=== PATIENT | male | born 1935 | race Caucasian/White ===

== ENCOUNTER 2017-01-07 10:28 | Inpatient (IN) | payer MEDICARE, BC ==
--- NOTE | ~2017-01-07 | DS ---
Unit #: [id number] #: [id number] Patient: TOSHIA MANN [id number] [address] [place], [place] [address] [id number] Jorge MR#: [id number] NAME: TOSHIA MANN. ROOM: 203 Age: 81 Sex: M Admission Date: 01/07/2017 : 1935 Discharge Date: 01/11/2017 Attending Physician: Rupa Odonnell M.D. Primary Care Physician: Calli Villalta M.D. DISCHARGE SUMMARY PRINCIPAL DIAGNOSES 1. Recurrent gross hematuria, secondary to #2. 2. Urinary retention, pending voiding trial. 3. Mild acute blood loss anemia with discharge hemoglobin 9.9. 4. Chronic kidney disease stage 3 with discharge creatinine of 1.9. 5. Paroxysmal atrial fibrillation, now being maintained on aspirin therapy only. 6. Coronary artery disease. 7. Hypertension. 8. History of bladder cancer with most recent biopsy approximately one month ago, negative. 9. Peripheral arterial disease. 10. Obesity. 11. Gastroesophageal reflux disease. 12. Hypothyroidism. CONCIERGE RECEPTIONIST Dr. Reyez, Urology. PROCEDURE None. CLINICAL HISTORY AND HOSPITAL COURSE Mr. Mann is a 81-year-old male with a history of recurrent hematuria, who presents to the emergency department with gross hematuria. Please refer to H and P for further details. The patient was found to have a therapeutic INR of 2.2. The patient had three-way catheter placed and was started on bladder irrigation per urology. With bladder irrigation, the patient's hematuria resolved. However, when irrigation was stopped, the patient developed recurrent gross hematuria and irrigation had to be re-initiated. It is felt at this time that patient's recurrent hematuria is secondary to significant bladder extension due to urinary retention and this distention in combination with his anticoagulation is leading to his gross hematuria. I am still awaiting a voiding trial since three-way catheter has been removed but I anticipate if patient is unable to void, he will be discharged home with a catheter. This case has been discussed with Dr. Damian and he agrees to stop Coumadin at least for the next month and continue patient on aspirin only given his paroxysmal atrial fibrillation. I anticipate patient will be discharged home later today. I will note patient developed a mild anemia secondary to his hematuria but discharge hemoglobin is stable. DISCHARGE CONDITION Stable. Unit #: [id number] #: [id number] Patient: TOSHIA MANN DISCHARGE STATUS Discharge to home plus/minus indwelling Rojas catheter. DISCHARGE MEDICATIONS 1. Flomax 0.4 mg daily. 2. Amiodarone 100 mg daily. 3. Meclizine 12.5 mg b.i.d. p.r.n. for dizziness. 4. [place] 3 fish oil two capsules b.i.d. 5. Lopid 600 mg b.i.d. 6. Coreg 12.5 mg b.i.d. 7. Norvasc 10 mg at bedtime. 8. MiraLax 17 g p.o. b.i.d. p.r.n. for constipation. 9. Lipitor 20 mg at bedtime. 10. Hydralazine 100 mg p.o. t.i.d. 11. Singulair 10 mg daily. 12. Aspirin 81 mg p.o. daily. 13. Protonix 40 mg daily. 14. Synthroid 25 mcg p.o. daily. 15. Nitroglycerin 0.4 mg sublingual q.5 minutes p.r.n. for chest pain. 16. Folic acid 1 mg daily. 17. Vitamin C 500 mg daily. DISCHARGE INSTRUCTIONS 1. The patient was instructed to follow a heart healthy diet. 2. He can increase his activity as tolerated. 3. If he is sent home with a catheter, he will continue catheter care per urology. FOLLOWUP The patient will follow up with urology as scheduled and again, he will not take any Coumadin for one month and can follow up with Dr. Damian at that time and will be maintained on aspirin therapy only. Time spent on discharge, 33 minutes. Dictated by... Rupa Odonnell M.D. GIGI/aidan TD: 01/12/2017 12:41 JOB #: [id number] DISCHARGE SUMMARY X Rupa Odonnell MD DISCHARGE SUMMARY
--- NOTE | ~2017-01-07 | CO ---
Unit #: [id number] #: [id number] Patient: TOSHIA MANN [id number] [address] [address] [id number] I MR#: [id number] NAME: TOSHIA MANN. ROOM: 331 Age: 81 Sex: M Admission Date: 01/07/2017 : 1935 Attending Physician: Bronson Sharma M.D. Primary Care Physician: Calli Villalta M.D. Consultation Date: 01/08/2017 CONSULTATION REPORT REASON FOR CONSULTATION Gross hematuria. HISTORY OF PRESENT ILLNESS Mr. Mann is a pleasant 81-year-old man well known to our service for his history of bladder cancer managed by Dr. Reyez and previous Dr. Villalta. He most recently was found to have high grade TIA, urothelial carcinoma in 03/2016 and underwent treatment with ECG at that time. He was admitted to the hospital in December with gross hematuria requiring CBI and ultimately was discharged with Rojas catheter in place. Of note, he also has a history of urinary retention. The patient has multiple comorbidities including hypertension, coronary artery disease, atrial fibrillation, peripheral artery disease, and history of strokes. He chronically takes Coumadin. When he was seen in the hospital, he was admitted and placed continuous bladder irrigation. He reports that he passed a couple of clots at home before presenting to the hospital but has had none since. No abdominal discomfort at this time. No nausea, vomiting, fevers, chills. PAST MEDICAL HISTORY 1. Bladder cancer. 2. History of gross hematuria requiring CBI. 3. Hypertension. 4. History of cerebrovascular accident. 5. Hypothyroidism. 6. Paroxysmal atrial fibrillation. 7. Coronary artery disease. 8. Peripheral artery disease. 9. Abdominal aortic aneurysm. 10. History of anticoagulation with Coumadin due to atrial fibrillation. PAST SURGICAL HISTORY 1. Angioplasty. 2. Carotid endarterectomy. 3. Abdominal aortic aneurysm. 4. Pacemaker placement. 5. Cholecystectomy. 6. Right shoulder surgery. 7. TURBT. SOCIAL HISTORY The patient is a nonsmoker, quit in . Does not drink alcohol. FAMILY HISTORY Unit #: [id number] #: [id number] Patient: TOSHIA MANN Noncontributory. ALLERGIES None. MEDICATIONS (HOME MEDICATIONS) 1. Amiodarone. 2. Norvasc. 3. Aspirin. 4. Lipitor. 5. Carvedilol. 6. Gemfibrozil. 7. Hydralazine. 8. Levothyroxine. 9. Meclizine. 10. Nitrostat. 11. [place] 3. 12. Metoprolol. 13. MiraLAX. 14. Vitamin C. 15. Singulair. 16. Flomax. 17. Coumadin. 18. Folic acid. PHYSICAL EXAMINATION VITAL SIGNS: Temp 98.3, pulse 58, respiratory rate 18, BP 123/66. GENERAL: Awake and alert. Oriented. HEENT: Pupils equal, round, responsive to light. RESPIRATORY: Normal respiratory effort. No use of accessory muscles. ABDOMEN: Soft, nontender, nondistended. : Rojas catheter intact. Continuous irrigation running at low rate. Urine is clear. EXTREMITIES: No edema, no clubbing, no pain. NEUROLOGIC: Normal gait. Normal affect and mood. Alert and oriented. He is following commands. SKIN: Warm and dry. DIAGNOSTIC STUDIES LABORATORY VALUES: White blood cell count 5.0, hemoglobin 12.5, creatinine 2.0. INR 2.2. Urinalysis - red, too numerous to count red blood cells, negative leukocyte esterase, negative nitrites. ASSESSMENT AND PLAN Mr. Mann is a 81-year-old man with a history of bladder cancer, recently admitted for gross hematuria requiring CBI, who presented to the ER with profound gross hematuria. He was admitted for CBI. 1. Wean CBI over the course of the day. 2. Continue to hold Coumadin. 3. Should he develop bladder discomfort, would recommend (1) suppositories. 4. Will continue to follow closely. Dictated by... Ajay Hobson M.D. Unit #: [id number] #: [id number] Patient: TOSHIA MANN MULU/david TD: 01/08/2017 13:42 JOB #: [id number] CONSULTATION REPORT X X CONSULTATION REPORT
--- NOTE | ~2017-01-07 | EKG ---
PATIENT: TOSHIA NICOLE UNIT #: [id number] Ventricular Rate: 60 BPM Atrial Rate: 60 BPM P-R Interval: 244 ms QRS Duration: 160 ms Q-T Interval: 486 ms QTC Calculation(Bezet): 486 ms P [place]: 13 degrees Calculated R [place]: -15 degrees Calculated T [place]: 11 degrees Diagnosis Line: Atrial-paced rhythm with prolonged AV conduction Diagnosis Line: with occasional ventricular-paced complexes Diagnosis Line: Right bundle branch block Diagnosis Line: Inferior infarct , age undetermined Diagnosis Line: Abnormal ECG Diagnosis Line: When compared with ECG of 13-MAR-2016 04:45, Diagnosis Line: No significant change was found Diagnosis Line: Confirmed by COLTEN VANCE MD ([id number]) on 01/08/2017 Diagnosis Line: 6:01:00 PM INTERPRETING MD: RAJIV VINSON
--- NOTE | ~2017-01-07 | HP ---
Unit #: [id number] #: [id number] Patient: TOSHIA NICOLE [id number] [address] [address] [id number] I MR#: [id number] NAME: TOSHIA NICOLE. ROOM: 59629 Age: 81 Sex: M Admission Date: 01/07/2017 : 1935 Attending Physician: Anita Russell M.D. Primary Care Physician: Calli Villalta M.D. HISTORY AND PHYSICAL CHIEF COMPLAINT Gross hematuria. HISTORY OF PRESENT ILLNESS The patient is a 81-year-old male with a past medical history of bladder cancer, hypertension, coronary artery disease, paroxysmal atrial fibrillation, peripheral arterial disease and cerebrovascular accident. The patient presented to the emergency department for evaluation of the above. The patient states that he was in his usual state of health until last night, when he noticed that his urine was pink. This morning, around 3:30, his urine had turned red and he was passing clots. He denies any burning with urination. No abdominal pain. No fever. No cough or cold symptoms. Of note, the patient was hospitalized at [facility] 12/19/2016 through 12/22/2016 for gross hematuria. He does have a history of bladder cancer. He was placed on continuous bladder irrigation. His Coumadin and aspirin were held. He was discharged home. In the emergency department the patient's hemoglobin is 12.5, INR is 2.2, vitamin K has been ordered. The emergency room physician spoke with Dr. Oakes, who recommended bladder irrigation. He is being admitted to [facility] for evaluation and further treatment. PAST MEDICAL HISTORY 1. Admission to [facility] 12/19/2016 through 12/22/2016 for gross hematuria. He underwent bladder irrigation as stated above. 2. History of bladder cancer. He has apparently completed a course of BCG. The patient states that he has had three surgeries related to the bladder cancer. He is followed by Dr. Reyez. 3. Hypertension. 4. History of cerebrovascular accident. 5. Hypothyroidism. 6. Paroxysmal atrial fibrillation. 7. Coronary artery disease, status post angioplasty. Followed by Dr. Damian. 8. Peripheral arterial disease, status post carotid endarterectomy. 9. Abdominal aortic aneurysm, status post repair. 10. Chronic anticoagulation with Coumadin. The patient states that he was placed on Coumadin by Dr. Damian following a stroke. Unit #: [id number] #: [id number] Patient: TOSHIA NICOLE PAST SURGICAL HISTORY 1. Angioplasty. 2. Carotid endarterectomy. 3. Abdominal aortic aneurysm repair. 4. Pacemaker placement. 5. Cholecystectomy. 6. Right shoulder surgery. SOCIAL HISTORY The patient lives with his . There is no tobacco or alcohol use. FAMILY HISTORY Notable for ovarian cancer. ALLERGIES No known drug allergies. HOME MEDICATIONS 1. Amiodarone. 2. Norvasc. 3. Aspirin. 4. Lipitor. 5. Carvedilol. 6. Gemfibrozil. 7. Hydralazine. 8. Levothyroxine. 9. Meclizine. 10. Nitrostat. 11. [place] 3. 12. Pantoprazole. 13. Polyethylene glycol. 14. Vitamin C. 15. Singulair. 16. Flomax. 17. Warfarin. 18. Folic acid. REVIEW OF SYSTEMS A complete review of systems is negative except as indicated in the history of present illness. PHYSICAL EXAMINATION GENERAL: The patient is a very pleasant male who is awake and alert, in no acute distress. VITALS: Temperature 98.4, pulse 60, respiratory rate 18, blood pressure 145/66. HEENT: The head is atraumatic. Mucous membranes are moist. NECK: Supple. Trachea midline. LUNGS: Clear to auscultation bilaterally with no increased work of breathing. HEART: Regular rate and rhythm. ABDOMEN: Soft and nontender with bowel sounds present in all four quadrants. EXTREMITIES: Nontender with no pedal edema. NEUROLOGIC: The patient is awake and alert. He follows commands. PSYCHIATRIC: Mood and affect are normal. The patient is cooperative. SKIN: Skin of examined areas is warm and dry. Unit #: [id number] #: [id number] Patient: TOSHIA NICOLE DIAGNOSTIC STUDIES LABORATORY: INR is 2.2. CBC notable for a hemoglobin of 12.5, hematocrit 39.1. CMP notable for chloride 112, BUN 18, creatinine 2. Urinalysis notable for 3+ protein, 1+ ketones, 4+ blood, with innumerable red blood cells and 1+ bacteria. ASSESSMENT The patient is a 81-year-old male with 1. Gross hematuria. The patient had postvoid residual of 1100 mL noted in the emergency department. The emergency room physician, Dr. Pa, spoke with Dr. Oakes who recommended bladder irrigation. 2. Normocytic anemia. The patient's hemoglobin was 12.4 on 12/19/2016 and it is 12.5 today. 3. Chronic anticoagulation with Coumadin. The patient's INR is 2.2 today. 4. Chronic kidney disease. The patient's creatinine was 2.1 on 12/07/2016 and it is 2 today. The patient has seen Dr. Thomas in the past. 5. History of bladder cancer, followed by Dr. Reyez. 6. Hypertension. 7. Coronary artery disease, status post angioplasty. 8. Paroxysmal atrial fibrillation. 9. Peripheral arterial disease, status post carotid endarterectomy and abdominal aortic aneurysm repair. 10. History of cerebrovascular accident. PLAN 1. Admit for observation to intermediate level. 2. Healthy heart diet. 3. Consult Dr. Reyez regarding gross hematuria. 4. Urine culture and sensitivity on urine in the lab. 5. Hold Coumadin. 6. Hold aspirin. 7. Hemoglobin and hematocrit later this afternoon. 8. Vitamin K. 9. Check EKG. 10. Repeat labs in the morning. 11. SCDs for DVT prophylaxis. 12. Additional workup and consultants based on the above. Dictated by Carl Barbour/víctor TD: 01/07/2017 15:24 JOB #: [id number] Unit #: [id number] #: [id number] Patient: TOSHIA NICOLE HISTORY AND PHYSICAL X Anita Russell MD HISTORY AND PHYSICAL
[~2017-01-07 10:28] MED LIST: AMIODARONE HCL100 MG PO; ASPIRIN81 M1 PO; ASPIRIN81 MG PO; ATORVASTATIN CA10 MG PO; B-121000 MC1 PO; CADUET 5 MG/401 TAB PO; CARVEDILOL12.5 MG PO; CARVEDILOL3.125 MG; COLACE PO; COREG3.125 MG PO; COUMADIN2.5 MG PO; COUMADIN5 MG PO; FLOMAX0.4 M1 PO; FOLIC ACID1 MG PO; HYDRALAZINE HC100 MG PO; HYDRALAZINE HCL50 MG PO; JANTOVEN2.5 MG; LEVAQUIN250 MG PO; LEVOTHYROXINE25 MCG PO; LIPITOR PO; LIPITOR20 MG PO; LOPID600 MG PO; LORTAB 5-325 M1 EACH PO; LOVAZA1 G PO; MECLIZINE HCL12.5 M1 PO; MECLIZINE HCL12.5 M2; MECLIZINE HCL12.5 M2 PO; MIRALAX17 G2 PO; NIASPAN750 MG PO; NITROGLYCERIN0.4 MG SL; NITROSTAT0.4 MG; NORVASC10 MG PO; OMEGA-3 ACID ETH1 GM PO; OMNICEF300 M1 PO; PACERONE100 MG; PRILOSEC20 MG; PRILOSEC20 MG PO; PROTONIX PO; RA VITAMIN C 5500 MG; RA VITAMIN C 5500 MG PO; SINGULAIR PO; ST JOSEPH ASPIR81 MG; VERAMYST10 GM; VITAMIN C500 M1 PO; VITAMIN D2000 UNIT PO
[2017-01-07 11:08] LABS: BASOPHIL# 0.1 X10e3 (0-0.3); BASOPHIL% 1.3 % (0-2.5); EOSINOPHIL# 0.2 X10e3 (0-0.7); EOSINOPHIL% 3.4 % (0.0-7.0); HEMATOCRIT 39.1 % (38.0-50.0); HEMOGLOBIN 12.5 gm/dL (13.0-16.0); LYMPHOCYTE# 1.4 X10e3 (1.0-3.5); LYMPHOCYTE% 28.8 % (17.0-45.0); MEAN CELL VOLUME 84.4 FL (83-96); MEAN CORPUSCULAR HGB CONC 31.9 g/dL (30-36); MEAN PLATELET VOLUME 9.6 FL (6.5-11.5); MONOCYTE# 0.6 X10e3 (0-1.0); MONOCYTE% 11.2 % (3.0-12.0); NEUTROPHIL# 2.8 X10e3 (1.5-7.1); NEUTROPHIL% 55.3 % (40-75); PLATELET COUNT 223 X10e3 (140-420); RED BLOOD COUNT 4.64 X10e (3.90-5.60); RED CELL DISTRIBUTION WIDTH 23.3 % (11.0-15.5)
[2017-01-07 11:10] LABS: DIFF IND YES
[2017-01-07 11:19] LABS: INR 2.2
[2017-01-07 11:37] LABS: URINE SOURCE CLEAN CATCH
[2017-01-07 11:48] LABS: ALBUMIN SERUM 3.8 g/dL (3.5-5.0); BILIRUBIN, DIRECT 0.1 mg/dL (0.0-0.2); BILIRUBIN,INDIRECT 0.5 mg/dL (0.0-0.9); BILIRUBIN,TOTAL 0.6 mg/dL (0.2-2.0); CALCIUM SERUM 8.5 mg/dL (8.4-10.2); GLOM FILT RATE Estimated 34.4 mL/min (>60); POTASSIUM 3.7 mmol/L (3.5-5.1); PROTEIN TOTAL SERUM 7.1 g/dL (6.0-8.3)
[2017-01-07 11:50] LABS: URINE APPEARANCE CLOUDY; URINE BILIRUBIN NEG (NEG); URINE BLOOD 4+ (NEG); URINE COLOR RED; URINE GLUCOSE NORM (NORM); URINE KETONE 1+ (NEG); URINE LEUKOCYTE ESTERASE NEG (NEG); URINE NITRATE NEG (NEG); URINE PROTEIN 3+ (NEG); URINE UROBILINOGEN NORM (NORM)
[2017-01-07 11:52] LABS: ANISOCYTOSIS MOD; OVALOCYTES PRESENT; PLATELET ESTIMATE NORMAL (NORMAL); POIKILOCYTOSIS SL
[2017-01-07 12:02] LABS: URBCS1 AUWI INNUM /[HPF] (0-2)
[2017-01-07 12:03] LABS: CULTURE INDICATED? NO; URINE BACTERIA AUWI 1+ (NEGATIVE)
[2017-01-07] MEDS ORDERED: COUMADIN2.5 MG PO (12:24)
[2017-01-07] MEDS ORDERED: SINGULAIR PO (12:24)
[2017-01-07 19:58] LABS: HEMATOCRIT 39.2 % (38.0-50.0); HEMOGLOBIN 12.5 gm/dL (13.0-16.0)
[2017-01-08 12:16] LABS: BASOPHIL# 0.1 X10e3 (0-0.3); BASOPHIL% 1.1 % (0-2.5); DIFF IND NO; EOSINOPHIL# 0.2 X10e3 (0-0.7); HEMATOCRIT 36.2 % (38.0-50.0); HEMOGLOBIN 11.7 gm/dL (13.0-16.0); LYMPHOCYTE# 1.6 X10e3 (1.0-3.5); LYMPHOCYTE% 20.3 % (17.0-45.0); MEAN CELL VOLUME 85.3 FL (83-96); MEAN CORPUSCULAR HEMOGLOBIN 27.5 PG (28-34); MEAN CORPUSCULAR HGB CONC 32.2 g/dL (30-36); MEAN PLATELET VOLUME 9.6 FL (6.5-11.5); MONOCYTE# 0.7 X10e3 (0-1.0); MONOCYTE% 9.5 % (3.0-12.0); NEUTROPHIL# 5.2 X10e3 (1.5-7.1); NEUTROPHIL% 67.1 % (40-75); PLATELET COUNT 236 X10e3 (140-420); RED BLOOD COUNT 4.24 X10e (3.90-5.60); RED CELL DISTRIBUTION WIDTH 23.2 % (11.0-15.5); WHITE BLOOD COUNT 7.7 X10e3 (4.0-10.5)
[2017-01-08 12:44] LABS: ALBUMIN SERUM 3.8 g/dL (3.5-5.0); BILIRUBIN,TOTAL 0.6 mg/dL (0.2-2.0); CALCIUM SERUM 9.1 mg/dL (8.4-10.2); CREATININE SERUM 1.9 mg/dL (0.6-1.4); GLOM FILT RATE Estimated 36.5 mL/min (>60); PROTEIN TOTAL SERUM 6.9 g/dL (6.0-8.3)
[2017-01-09 10:06] LABS: HEMOGLOBIN 10.4 gm/dL (13.0-16.0)
[2017-01-10 06:55] LABS: BASOPHIL# 0.1 X10e3 (0-0.3); EOSINOPHIL# 0.2 X10e3 (0-0.7); EOSINOPHIL% 3.9 % (0.0-7.0); HEMATOCRIT 32.6 % (38.0-50.0); HEMOGLOBIN 10.4 gm/dL (13.0-16.0); LYMPHOCYTE# 1.9 X10e3 (1.0-3.5); LYMPHOCYTE% 29.6 % (17.0-45.0); MEAN CELL VOLUME 85.5 FL (83-96); MEAN CORPUSCULAR HEMOGLOBIN 27.2 PG (28-34); MEAN CORPUSCULAR HGB CONC 31.8 g/dL (30-36); MEAN PLATELET VOLUME 9.6 FL (6.5-11.5); MONOCYTE# 0.6 X10e3 (0-1.0); MONOCYTE% 9.6 % (3.0-12.0); NEUTROPHIL# 3.6 X10e3 (1.5-7.1); NEUTROPHIL% 55.9 % (40-75); PLATELET COUNT 205 X10e3 (140-420); RED BLOOD COUNT 3.82 X10e (3.90-5.60); RED CELL DISTRIBUTION WIDTH 23.5 % (11.0-15.5); WHITE BLOOD COUNT 6.4 X10e3 (4.0-10.5)
[2017-01-10 06:56] LABS: DIFF IND YES
[2017-01-10 07:00] LABS: INR 1.2; PROTHROMBIN TIME (PATIENT) 12.3 SECONDS (9.6-11.5)
[2017-01-10 07:19] LABS: BUN/CREATININE RATIO 9.41; CALCIUM SERUM 8.9 mg/dL (8.4-10.2); CREATININE SERUM 1.7 mg/dL (0.6-1.4); GLOM FILT RATE Estimated 41.5 mL/min (>60); POTASSIUM 3.9 mmol/L (3.5-5.1)
[2017-01-10 08:01] LABS: PLATELET ESTIMATE NORMAL (NORMAL)
[2017-01-10 08:02] LABS: ANISOCYTOSIS MOD; POIKILOCYTOSIS SL
[2017-01-11 05:38] LABS: BUN/CREATININE RATIO 8.94; CALCIUM SERUM 8.6 mg/dL (8.4-10.2); CREATININE SERUM 1.9 mg/dL (0.6-1.4); GLOM FILT RATE Estimated 36.5 mL/min (>60)
[2017-01-11 05:53] LABS: HEMATOCRIT 31.1 % (38.0-50.0); HEMOGLOBIN 9.9 gm/dL (13.0-16.0); MEAN CELL VOLUME 85.7 FL (83-96); MEAN CORPUSCULAR HEMOGLOBIN 27.4 PG (28-34); MEAN PLATELET VOLUME 9.9 FL (6.5-11.5); RED BLOOD COUNT 3.62 X10e (3.90-5.60); RED CELL DISTRIBUTION WIDTH 23.1 % (11.0-15.5); WHITE BLOOD COUNT 7.1 X10e3 (4.0-10.5)
== END 2017-01-11 13:29 | disposition home or self-care (01) | DRG 696 ==
LOC: CED 10:28 → C2A 01-10 12:30
PROVIDERS: Emergency Medicine; Family Medicine; Internal Medicine
DX: R31.0 Gross hematuria (principal); D62 Acute posthemorrhagic anemia; N18.3 Chronic kidney disease, stage 3 (moderate); I48.0 Paroxysmal atrial fibrillation; R33.9 Retention of urine, unspecified; I12.9 Hypertensive chronic kidney disease with stage 1 through stage 4 chronic kidney disease, or unspecified chronic kidney disease; I25.10 Atherosclerotic heart disease of native coronary artery without angina pectoris; I73.9 Peripheral vascular disease, unspecified; K21.9 Gastro-esophageal reflux disease without esophagitis; E03.9 Hypothyroidism, unspecified; Z85.51 Personal history of malignant neoplasm of bladder; Z79.01 Long term (current) use of anticoagulants; E66.9 Obesity, unspecified; Z68.31 Body mass index [BMI] 31.0-31.9, adult; Z95.0 Presence of cardiac pacemaker; Z86.73 Personal history of transient ischemic attack (TIA), and cerebral infarction without residual deficits; Z90.49 Acquired absence of other specified parts of digestive tract
CPT/HCPCS: 36415; 80048; 80053; 80076; 81003; 83036; 85014; 85018; 85025; 85027; 85610; 87086; 93005; 99291; J3430

== ENCOUNTER → 2017-02-02 | Outpatient (CLI) | payer MEDICARE, BC ==
--- NOTE | ~2017-02-02 | US135 ---
[facility] A Service of [facility] & [facility] RADIOLOGY TEXT RESULTS PATIENT: TOSHIA NICOLE LOCATION: CNIV : 37 UNIT #: [id number] AGE: [address]: STEF GARCIAS APRN SEX: M ORDER DR: [id number] [facility] [address] [place], [place] [address] [id number] O MR#: [id number] Acc #: [id number] NAME: TOSHIA NICOLE. : 1935 SEX: M STUDY DATE/TIME: 02/02/2017 9:01 UNIT: CNIV ROOM: STUDY DESCRIPTION: US U/L Ext Art Study Comp Baldomero Attending Physician: Stef Garcias M.D. Referring Physician: Stef Garcias M.D. Ordering Physician: Stef Garcias M.D. Primary Care Physician: Calli Villalta M.D. MEDICAL IMAGING REPORT This report is preliminary unless electronic signature is present EXAM Bilateral ankle to brachial indices INDICATIONS Claudication bilaterally. Patient has a history of hypertension, hyperlipidemia and heart disease. TECHNIQUE Sequential compressions were obtained through both lower extremities and pulse volume recordings were generated. FINDINGS The patient's ankle to brachial indices are diminished bilaterally, ankle-brachial index of the dorsalis pedis artery in the right is 0.69 and the posterior tibial artery on the right is 0.70. The ankle to brachial index of the posterior tibial artery on the left is 0.62 and at the dorsalis pedis artery in the left is 0.63. toe to brachial indices are also diminished measuring 0.49 on the right and 0.22 on the left. Overall, waveforms actually appear fairly well preserved. The main decrease in pressure appears to occur within the [id number] vessels. IMPRESSION 1. Bilaterally diminished ankle to brachial indices suggestive of multiple levels of arterial disease. This certainly would be in claudication range. Further evaluation with CT angiography of the abdomen and pelvis with bilateral lower extremity runoff may be helpful for additional characterization. Main decrease in pressures appears to occur below the knee, but again, multiple levels of arterial disease are suspected. 2. Toe to brachial indices are also diminished. I am uncertain if this reflects inflow disease or small vessel disease or a combination of both. [facility] A Service of [facility] & [facility] RADIOLOGY TEXT RESULTS PATIENT: TOSHIA NICOLE LOCATION: [facility] : 37 UNIT #: [id number] AGE: [address]: STEF GARCIAS APRN SEX: M ORDER DR: Dictated by... Sonya Justice M.D. THIS IS AN ELECTRONICALLY VERIFIED REPORT Sonya Justice M.D. at 02/02/2017 4:37 PM AFF/to TD: 02/02/2017 12:12 JOB #: [id number] MEDICAL IMAGING REPORT Page 1 of 1 COPY
== END | disposition home or self-care (01) ==
LOC: CNIV 08:52
DX: I73.9 Peripheral vascular disease, unspecified (principal); R60.0 Localized edema
CPT/HCPCS: 93923

== ENCOUNTER → 2017-03-14 | Outpatient (CLI) | payer MEDICARE, BC ==
--- NOTE | ~2017-03-14 | US37 ---
[facility] A Service of [facility] & [facility] RADIOLOGY TEXT RESULTS PATIENT: TOSHIA NICOLE LOCATION: CNIV : 37 UNIT #: [id number] AGE: [address]: Jossy Oconnor SEX: M ORDER DR: [id number] [facility] [address] [place], [place] [address] [id number] O MR#: [id number] Acc #: [id number] NAME: TOSHIA NICOLE. : 1935 SEX: M STUDY DATE/TIME: 03/14/2017 10:55 UNIT: CNIV ROOM: STUDY DESCRIPTION: US Carotid W/Doppler Bilateral Attending Physician: Jossy Oconnor A.P.R.N. Referring Physician: Jossy Oconnor A.P.R.N. Ordering Physician: Jossy Oconnor A.P.R.N. Primary Care Physician: Calli Villalta M.D. MEDICAL IMAGING REPORT This report is preliminary unless electronic signature is present EXAM Bilateral carotid duplex HISTORY Aneurysm FINDINGS Duplex imaging of the carotid arteries was performed. The right common carotid artery is patent. Hyperechoic broad plaque is seen in the right distal common carotid artery extending into the internal and external carotid arteries. Velocity in the right common carotid is 67, internal is 101 proximally 181 mid portion and 111 distally. External is 201 cm/sec. Right ICA/CCA ratio is 2.8. On the left side, the common carotid artery is patent. The patient appears to have an endarterectomy on the left side and internal carotid artery has a patulous appearance and is widely patent. External carotid artery is patent. Velocity in the left common carotid is 64, internal is 110 and external is 133 cm/sec. Left ICA/CCA ratio is 1.8. Antegrade flow is seen in the right and left vertebral arteries. IMPRESSION 1. Plaque with 50% to 69% stenosis is seen in the right mid internal carotid artery. 2. Normal appearance of the left internal carotid artery post endarterectomy. 3. Antegrade flow is seen in the right and left vertebral arteries. Dictated by... Mamadou Woodard M.D. [facility]. [facility] A Service of [facility] & [facility] RADIOLOGY TEXT RESULTS PATIENT: TOSHIA NICOLE [id number] UNIT #: [id number] AGE: [address]: Jossy Oconnor SEX: M ORDER DR: THIS IS AN ELECTRONICALLY VERIFIED REPORT Mamadou Woodard M.D. at 03/17/2017 10:50 AM Gregory TD: 03/15/2017 09:02 JOB #: [id number] MEDICAL IMAGING REPORT Page 1 of 1 COPY
== END | disposition home or self-care (01) ==
LOC: CNIV 10:28
DX: I71.4 Abdominal aortic aneurysm, without rupture (principal); I65.23 Occlusion and stenosis of bilateral carotid arteries
CPT/HCPCS: 93880

== ENCOUNTER → 2017-04-14 | Outpatient (CLI) | payer MEDICARE, BC ==
[2017-04-14 20:00] LABS: POC - CREATININE 1.75 mg/dL (0.64-1.27)
== END | disposition home or self-care (01) ==
LOC: CCAT 14:10
PROVIDERS: Otolaryngology
DX: H91.20 Sudden idiopathic hearing loss, unspecified ear (principal)
CPT/HCPCS: 82565

== ENCOUNTER → 2017-04-19 | Outpatient (CLI) | payer MEDICARE, BC ==
[2017-04-19 11:26] LABS: HEMATOCRIT 38.3 % (38.0-50.0); HEMOGLOBIN 12.6 gm/dL (13.0-16.0); MEAN CELL VOLUME 87.7 FL (83-96); MEAN CORPUSCULAR HEMOGLOBIN 28.7 PG (28-34); MEAN CORPUSCULAR HGB CONC 32.8 g/dL (30-36); RED BLOOD COUNT 4.37 X10e (3.90-5.60); RED CELL DISTRIBUTION WIDTH 15.8 % (11.0-15.5); WHITE BLOOD COUNT 5.6 X10e3 (4.0-10.5)
[2017-04-19 11:47] LABS: ALBUMIN SERUM 4.4 g/dL (3.5-5.0); BILIRUBIN,TOTAL 0.8 mg/dL (0.2-2.0); BUN/CREATININE RATIO 10.83; CALCIUM SERUM 8.9 mg/dL (8.4-10.2); CREATININE SERUM 2.4 mg/dL (0.6-1.4); GLOM FILT RATE Estimated 24.6 mL/min (>60); MAGNESIUM 2.2 mg/dL (1.6-3.0); PHOSPHOROUS 3.5 mg/dL (2.5-4.6); POTASSIUM 3.8 mmol/L (3.5-5.1); PROTEIN TOTAL SERUM 7.3 g/dL (6.0-8.3)
[2017-04-19 15:35] LABS: CREATININE,RANDOM URINE 219 mg/dL; TOTAL PROTEIN,RANDOM URINE 29 mg/dl (<10)
[2017-04-21 17:22] LABS: CALCIUM (PTHINTACT) 9.2 mg/dL (8.6-10.3)
== END | disposition home or self-care (01) ==
LOC: SLAB 10:38
PROVIDERS: Internal Medicine Nephrology
DX: N18.3 Chronic kidney disease, stage 3 (moderate) (principal)
CPT/HCPCS: 36415; 80053; 82310; 82570; 83735; 83970; 84100; 84156; 85027

== ENCOUNTER → 2017-04-19 | Outpatient (CLI) | payer MEDICARE, BC ==
--- NOTE | ~2017-04-19 | CT77 ---
[facility] A Service of [facility] & [facility] RADIOLOGY TEXT RESULTS PATIENT: TOSHIA NICOLE LOCATION: [facility] : 37 UNIT #: [id number] AGE: [address]: Mario Almeida MD SEX: M ORDER DR: [id number] [facility] [address] [place], [place] [address] [id number] O MR#: [id number] Acc #: [id number] NAME: TOSHIA NICOLE. : 1935 SEX: M STUDY DATE/TIME: 04/19/2017 10:00 UNIT: [facility] ROOM: STUDY DESCRIPTION: CT IAC, Sella, Temporal Bone W Attending Physician: Mario Almeida M.D. Referring Physician: Mario Almeida M.D. Ordering Physician: Mario Almeida M.D. Primary Care Physician: Calli Villalta M.D. MEDICAL IMAGING REPORT This report is preliminary unless electronic signature is present EXAM CT scan of the temporal bones without contrast HISTORY Sudden onset of hearing loss on the left beginning on 04/08/2017. History of chronic bilateral sensory neural hearing loss. TECHNIQUE Thin section imaging was obtained through the temporal bones without contrast with multiplanar reformats also evaluated. This CT exam was performed with one or more of the following radiation dose reduction techniques: automatic exposure control, adjustment of mA and/or kV according to patient size, and iterative reconstruction. FINDINGS There is extensive atherosclerotic calcifications seen through both carotid siphons with moderate calcification of the basilar artery noted. Mucosal thickening is seen in the right maxillary sinus. The mastoid and petrous air cells are well-aerated bilaterally. No middle ear masses or fluid collections are seen on either side. Inner ear structures are remarkable for dehiscence or near dehiscence of the right superior semicircular canal. The sagittal images of this canal suggest a thin intact bony membrane, but this is not definitely confirmed on the coronal images. Inner ear structures are otherwise unremarkable. The cochlea has a normal appearance on both sides. This is opposite the symptomatic side. Semicircular canals on the left side are unremarkable. IMPRESSION 1. The right superior semicircular canal is either dehiscence or nearly dehiscent. 2. No temporal bone abnormality is seen on the symptomatic left side. [facility]. [facility] A Service of [facility] & [facility] RADIOLOGY TEXT RESULTS PATIENT: TOSHIA NICOLE LOCATION: [facility] : 37 UNIT #: [id number] AGE: [address]: Mario Almeida MD SEX: M ORDER DR: 3. Chronic inflammatory sinus disease right maxillary sinus. 4. Fairly extensive atherosclerotic calcification noted in the carotid siphons and to a lesser degree in the basilar artery. STAT * RESULT Dictated by... Sincere Jerry M.D. THIS IS AN ELECTRONICALLY VERIFIED REPORT Sincere Jerry M.D. at 04/22/2017 3:52 PM DAVID/katty TD: 04/22/2017 13:09 JOB #: [id number] MEDICAL IMAGING REPORT Page 1 of 1 COPY
== END | disposition home or self-care (01) ==
LOC: CCAT 09:28
DX: H91.20 Sudden idiopathic hearing loss, unspecified ear (principal); J34.89 Other specified disorders of nose and nasal sinuses; I65.23 Occlusion and stenosis of bilateral carotid arteries
CPT/HCPCS: 70480

== ENCOUNTER → 2017-05-20 | Outpatient (CLI) | payer MEDICARE, BC ==
--- NOTE | ~2017-05-20 | CR7 ---
[facility] A Service of [facility] & [facility] RADIOLOGY TEXT RESULTS PATIENT: TOSHIA NICOLE LOCATION: [facility] : 37 UNIT #: [id number] AGE: [address]: Sincere Reyez MD SEX: M ORDER DR: [id number] [facility] [address] [place], [place] [address] [id number] O MR#: [id number] Acc #: [id number] NAME: TOSHIA NICOLE. : 1935 SEX: M STUDY DATE/TIME: 05/20/2017 17:03 UNIT: [facility] ROOM: STUDY DESCRIPTION: CR Abdomen Single AP View Attending Physician: Sincere Reyez M.D. Referring Physician: Sincere Reyez M.D. Ordering Physician: Sincere Reyez M.D. Primary Care Physician: Calli Villalta M.D. MEDICAL IMAGING REPORT This report is preliminary unless electronic signature is present EXAM AP abdomen HISTORY Difficulty urinating for 2 days. FINDINGS The bowel gas pattern is normal. Curvilinear arterial calcifications in the upper abdomen bilaterally. Surgical clips in the right upper quadrant. Additional mild arterial calcifications in the pelvis. Well-circumscribed chronic oval calcification over the left pelvis is stable compared to findings on CT 01/08/2016. Mild multilevel degenerative changes in the lumbar spine. IMPRESSION 1. No retained implanted device component is identified. 2. Surgical clips in the right upper quadrant. 3. Arterial calcifications in the abdomen and pelvis. 4. Stable smoothly marginated oval calcification in the left pelvis is unchanged compared to prior studies dating back to CT 01/08/2016. Dictated by... Felix Mclaughlin M.D. THIS IS AN ELECTRONICALLY VERIFIED REPORT Felix Mclaughlin M.D. at 05/23/2017 11:02 PM Yenni TD: 05/23/2017 08:05 JOB #: [id number] MEDICAL IMAGING REPORT Page 1 of 1 COPY
== END | disposition home or self-care (01) ==
LOC: CRAD 16:43
DX: R33.9 Retention of urine, unspecified (principal); I70.8 Atherosclerosis of other arteries; Z98.890 Other specified postprocedural states
CPT/HCPCS: 74000